=== PATIENT | female | born 1965 | race African-American/Black ===

== ENCOUNTER 2019-08-03 09:33 | Inpatient (IN) | payer SELFPAY ==
[2019-08-03] VITALS (10 sets, daily range): BP systolic 115–219; BP diastolic 68–130
[~2019-08-03] VITALS: Ht 157.5 cm; Wt 85.3 kg
[~2019-08-03 09:33] MED LIST: QUIL
[2019-08-03] MEDS ORDERED: MORPHINE SULFATE 4 MG/ML CPJ (NOT FOR IM USE) IV STA (12:21)
[2019-08-03] MEDS ORDERED: SODIUM CHLORIDE 0.9% 1,000 ML IV ONE ×2 (12:21→18:15)
[2019-08-03] MEDS ORDERED: ONDANSETRON HCL 4MG/2ML INJ IV STA (12:21)
[2019-08-03 13:31] LABS: BASOPHILS % 1.1 % (0.0-2.0); HEMATOCRIT. 32.5 % (36.0-48.0); HEMOGLOBIN. 10.1 g/dL (12.0-16.0); LYMPHOCYTES % 18.4 % (20.0-50.0); MEAN CORPUSCULAR HEMOGLOBIN 20.8 pg (28.0-32.0); MEAN CORPUSCULAR VOLUME 67.1 fL (81.0-99.0); MEAN PLATELET VOLUME 9.2 fl (7.4-10.4); MONOCYTES % 6.2 % (2.0-8.0); NEUTROPHILS % 73.3 % (40.0-76.0); PLATELET 342 x1000/uL (130-400); RED BLOOD CELL COUNT 4.84 mill/uL (4.2-5.4); RED CELL DISTRIBUTION WIDTH 22.4 % (11.6-14.6)
[2019-08-03 13:38] LABS: PROTHROMBIN TIME 9.8 sec (9.6-11.0)
[2019-08-03 13:39] LABS: CHLORIDE 109 mEq/L (98-107)
[2019-08-03 14:09] LABS: PLATELET ESTIMATE NORMAL
[2019-08-03] MEDS ORDERED: IOHEXOL-300 100 ML BOTTLE ONE (14:18)
[2019-08-03] MEDS ORDERED: METRONIDAZOLE 500 MG PREMIX 100 ML IV ONE (14:45)
[2019-08-03] MEDS ORDERED: CEFTRIAXONE 1 G PREMIX 50 ML IV ONE (14:45)
[2019-08-03 15:22] LABS: CLARITY URINE CLEAR (CLEAR); COLOR URINE YELLOW (YELLOW); KETONES URINE NEGATIVE (NEGATIVE); LEUKOCYTE ESTERASE URINE NEGATIVE (NEGATIVE); NITRITE URINE NEGATIVE (NEGATIVE); OCCULT BLOOD URINE TRACE (NEGATIVE); PROTEIN URINE NEGATIVE (NEGATIVE); SPECIFIC GRAVITY URINE 1.005 (1.005-1.030); UROBILINOGEN URINE 0.2 E.U./dL (0.2-1.0)
[2019-08-03] MEDS ORDERED: SKIN ADHESIVE 0.7 GM EA TOP ONE (15:37)
[2019-08-03] MEDS ORDERED: BUPIVACAINE HCL 0.5% (5MG/ML) 50ML ONE (15:37)
[2019-08-03] MEDS ORDERED: FENTANYL CITRATE/PF 50MCG/ML 2ML VIAL IV PRN (15:45)
[2019-08-03] MEDS ORDERED: HYDROMORPHONE HCL/PF 2MG/ML CPJ IV PRN ×2 (15:45→18:00)
[2019-08-03] MEDS ORDERED: ONDANSETRON HCL 4MG/2ML INJ IV PRN ×4 (15:45→19:16)
[2019-08-03] MEDS ORDERED: PROPOFOL 200MG/20ML VIAL IV ONE ×2 (15:55→16:49)
[2019-08-03] MEDS ORDERED: SUCCINYLCHOLINE CHLORIDE 200MG/10ML IV ONE (15:55)
[2019-08-03] MEDS ORDERED: ROCURONIUM BROMIDE 10MG/ML VIAL 5ML IV ONE ×2 (15:55→17:17)
[2019-08-03] MEDS ORDERED: MIDAZOLAM HCL 2 MG/2 ML VIAL ONE ×2 (15:55→18:30)
[2019-08-03] MEDS ORDERED: LIDOCAINE HCL/PF 1% 10 MG/ML 5ML VIAL ONE (15:55)
[2019-08-03] MEDS ORDERED: DEXT 5%/0.45% NACL KCL 10MEQ/L 1,000 ML IV SCH (16:51)
[2019-08-03] MEDS ORDERED: DEXAMETHASONE 4MG/ML 1ML VIAL ONE (16:57)
[2019-08-03] MEDS ORDERED: HYDROCODONE/ACETAMINOPHEN 5/325MG TABLET PO PRN ×2 (17:00→19:16)
[2019-08-03] MEDS ORDERED: IPRATROPIUM/ALBUTEROL 0.5-3(2.5)MG/3ML NEB NEB PRN (17:00)
[2019-08-03] MEDS ORDERED: PIPERACILLIN/TAZ 3.375G PREMIX 50 ML IV SCH (17:00)
[2019-08-03] MEDS ORDERED: MORPHINE SULFATE 2 MG/ML CPJ (NOT FOR IM USE) IV PRN ×3 (17:00→19:16)
[2019-08-03] MEDS ORDERED: ALBUTEROL 90MCG/PUFF 17GM INHALER INH ONE (17:05)
[2019-08-03] MEDS ORDERED: MEPERIDINE HCL/PF 25MG/ML CPJ IV PRN ×2 (18:00)
[2019-08-03] MEDS: MIDAZOLAM HCL 5 MG/5 ML VIAL IV PRN ×2 (19:04→19:44)
[2019-08-03] MEDS ORDERED: MORPHINE SULFATE 4 MG/ML CPJ (NOT FOR IM USE) IV PRN (19:16)
[2019-08-03] MEDS ORDERED: MAGNESIUM/ALUMINUM HYDROXIDE/SIMETHICONE 30ML UDC PO PRN (19:18)
[2019-08-03] MEDS ORDERED: ACETAMINOPHEN 325MG TABLET PO PRN (19:18)
[2019-08-03] MEDS ORDERED: CLONIDINE 0.1MG TABLET PO PRN (19:18)
[2019-08-03] MEDS ORDERED: DIPHENHYDRAMINE 50MG/ML VIAL IV PRN (19:19)
[2019-08-03] MEDS ORDERED: NA PHOS,M-B/NA PHOS,DI-BA ENEMA 118ML PR PRN (19:19)
[2019-08-03] MEDS ORDERED: GUAIFENESIN 200MG/10ML SUGAR FREE UDC PO PRN (19:19)
[2019-08-03] MEDS ORDERED: DOCUSATE SODIUM 100MG CAPSULE PO PRN (19:19)
[2019-08-03] MEDS ORDERED: LORAZEPAM 2MG/ML CPJ IV PRN (19:20)
[2019-08-03 20:33] LABS: BG CARBOXYHEMOGLOBIN 0.4 % (0.5-1.5); BG DEOXYHEMOGLOBIN 0.6 % (0.0-5.0); BG FRACTION INSPIRED OXYGEN 100; BG HCO3 ACT 23.3 mmol/L (22.0-26.0); BG METHEMOGLOBIN 0.4 % (0.0-1.5); BG OXYGEN SATURATION 99.4 % (92.0-98.5); BG OXYHEMOGLOBIN 98.6 % (94.0-97.0); BG PCO2 47.5 mmHg (35.0-45.0); BG PH 7.309 (7.350-7.450); BG PO2 234.2 mmHg (75.0-100.0); BG SAMPLE SITE RIGHT RADIAL; BG TIDAL VOLUME(mL) 500 mL; BG TOTAL HEMOGLOBIN 10.9 g/dL (12.0-18.0); BG VENT MODE VENT - A/C; BG VENT RATE 14 set
[2019-08-03] MEDS: PROPOFOL 10MG/ML 100ML 100 ML IV PRN (21:29)
[2019-08-03] MEDS: SODIUM CHLORIDE 0.9% INJ 3ML FLUSH IVF SCH (22:14)
[2019-08-03] MEDS: PIPERACILLIN/TAZOBACTAM 3.375 G in DEXT 5% WATER 100 ML IV SCH (22:22)
[2019-08-03] MEDS: DEXT 5%/0.45% NACL KCL 20MEQ/L 1,000 ML IV SCH (22:22)
[2019-08-03 23:24] LABS: CHLORIDE 110 mEq/L (98-107)
[2019-08-04] VITALS (43 sets, daily range): BP systolic 95–156; BP diastolic 54–147
[2019-08-04] MEDS: PROPOFOL 10MG/ML 100ML 100 ML IV PRN ×6 (01:34→23:38)
[2019-08-04] MEDS: SODIUM CHLORIDE 0.9% INJ 3ML FLUSH IVF SCH ×3 (05:48→21:16)
[2019-08-04] MEDS: PIPERACILLIN/TAZOBACTAM 3.375 G in DEXT 5% WATER 100 ML IV SCH ×3 (05:50→21:16)
[2019-08-04 06:47] LABS: HEMATOCRIT. 32.6 % (36.0-48.0); HEMOGLOBIN. 9.6 g/dL (12.0-16.0); LYMPHOCYTES % 8.2 % (20.0-50.0); MEAN CORPUSCULAR HEMOGLOBIN 20.1 pg (28.0-32.0); MEAN CORPUSCULAR VOLUME 68.3 fL (81.0-99.0); MEAN PLATELET VOLUME 8.9 fl (7.4-10.4); MONOCYTES % 2.5 % (2.0-8.0); NEUTROPHILS % 89.3 % (40.0-76.0); PLATELET 355 x1000/uL (130-400); RED BLOOD CELL COUNT 4.78 mill/uL (4.2-5.4); RED CELL DISTRIBUTION WIDTH 22.4 % (11.6-14.6)
[2019-08-04 07:21] LABS: CHLORIDE 109 mEq/L (98-107)
[2019-08-04 07:30] LABS: LDL CHOLESTEROL 51 mg/dL (5-100)
[2019-08-04 07:31] LABS: HDL CHOLESTEROL 47 mg/dL (40-59)
[2019-08-04 08:02] LABS: BG BASE EXCESS -3.4 mmol/L (-2.0-2.0); BG CARBOXYHEMOGLOBIN 0.2 % (0.5-1.5); BG DEOXYHEMOGLOBIN 2.8 % (0.0-5.0); BG FRACTION INSPIRED OXYGEN 61; BG HCO3 ACT 21.4 mmol/L (22.0-26.0); BG METHEMOGLOBIN 0.2 % (0.0-1.5); BG OXYGEN SATURATION 97.2 % (92.0-98.5); BG OXYHEMOGLOBIN 96.8 % (94.0-97.0); BG PCO2 37.4 mmHg (35.0-45.0); BG PH 7.375 (7.350-7.450); BG PO2 95.5 mmHg (75.0-100.0); BG SAMPLE SITE RIGHT RADIAL; BG TIDAL VOLUME(mL) 500 mL; BG TOTAL HEMOGLOBIN 10.5 g/dL (12.0-18.0); BG VENT MODE VENT - A/C; BG VENT RATE 16 set
[2019-08-04] MEDS: ENOXAPARIN 40MG/0.4ML SYR SUBCUT SCH (08:51)
[2019-08-04] MEDS: DEXT 5%/0.45% NACL KCL 20MEQ/L 1,000 ML IV SCH ×2 (08:52→19:08)
[2019-08-04] MEDS ORDERED: IPRATROPIUM/ALBUTEROL 0.5-3(2.5)MG/3ML NEB HHN SCH (09:15)
[2019-08-04] MEDS: IPRATROPIUM/ALBUTEROL 0.5-3(2.5)MG/3ML NEB HHN SCH ×3 (11:36→20:25)
[2019-08-04] MEDS: ACETYLCYSTEINE 100MG/ML 10% VIAL 4ML INH SCH (15:39)
[2019-08-05] VITALS (33 sets, daily range): BP systolic 102–173; BP diastolic 57–126
[2019-08-05] MEDS: ACETYLCYSTEINE 100MG/ML 10% VIAL 4ML INH SCH ×2 (00:29→16:27)
[2019-08-05] MEDS: IPRATROPIUM/ALBUTEROL 0.5-3(2.5)MG/3ML NEB HHN SCH ×6 (00:29→21:40)
[2019-08-05] MEDS: PROPOFOL 10MG/ML 100ML 100 ML IV PRN ×2 (04:49→07:09)
[2019-08-05] MEDS: PIPERACILLIN/TAZOBACTAM 3.375 G in DEXT 5% WATER 100 ML IV SCH ×3 (04:50→22:03)
[2019-08-05] MEDS: SODIUM CHLORIDE 0.9% INJ 3ML FLUSH IVF SCH ×3 (06:10→21:07)
[2019-08-05] MEDS: DEXT 5%/0.45% NACL KCL 20MEQ/L 1,000 ML IV SCH ×2 (06:28→17:55)
[2019-08-05 06:35] LABS: BASOPHILS % 0.4 % (0.0-2.0); EOSINOPHILS % 0.4 % (0.0-5.0); HEMOGLOBIN. 9.3 g/dL (12.0-16.0); LYMPHOCYTES % 14.1 % (20.0-50.0); MEAN CORPUSCULAR HEMOGLOBIN 20.3 pg (28.0-32.0); MEAN CORPUSCULAR VOLUME 67.7 fL (81.0-99.0); MONOCYTES % 5.9 % (2.0-8.0); NEUTROPHILS % 79.2 % (40.0-76.0); RED BLOOD CELL COUNT 4.57 mill/uL (4.2-5.4); RED CELL DISTRIBUTION WIDTH 22.6 % (11.6-14.6)
[2019-08-05 07:23] LABS: CHLORIDE 110 mEq/L (98-107)
[2019-08-05 07:37] LABS: PLATELET 251 x1000/uL (130-400)
[2019-08-05 08:40] LABS: BG BASE EXCESS 3.9 mmol/L (-2.0-2.0); BG CARBOXYHEMOGLOBIN 0.3 % (0.5-1.5); BG DEOXYHEMOGLOBIN 0.8 % (0.0-5.0); BG FRACTION INSPIRED OXYGEN 60; BG HCO3 ACT 28.8 mmol/L (22.0-26.0); BG METHEMOGLOBIN 0.3 % (0.0-1.5); BG OXYGEN SATURATION 99.2 % (92.0-98.5); BG OXYHEMOGLOBIN 98.6 % (94.0-97.0); BG PH 7.424 (7.350-7.450); BG PO2 210.3 mmHg (75.0-100.0); BG SAMPLE SITE RIGHT RADIAL; BG TIDAL VOLUME(mL) 500 mL; BG TOTAL HEMOGLOBIN 9.6 g/dL (12.0-18.0); BG VENT MODE VENT - A/C; BG VENT RATE 14 set
[2019-08-05] MEDS: ENOXAPARIN 40MG/0.4ML SYR SUBCUT SCH (09:53)
[2019-08-05 10:01] LABS: BG BASE EXCESS 3.2 mmol/L (-2.0-2.0); BG CARBOXYHEMOGLOBIN 0.3 % (0.5-1.5); BG DEOXYHEMOGLOBIN 1.9 % (0.0-5.0); BG FRACTION INSPIRED OXYGEN 40; BG HCO3 ACT 27.4 mmol/L (22.0-26.0); BG METHEMOGLOBIN 0.2 % (0.0-1.5); BG OXYGEN SATURATION 98.1 % (92.0-98.5); BG OXYHEMOGLOBIN 97.6 % (94.0-97.0); BG PH 7.453 (7.350-7.450); BG PO2 112.3 mmHg (75.0-100.0); BG PRESSURE SUPPORT 8; BG SAMPLE SITE RIGHT RADIAL; BG TOTAL HEMOGLOBIN 9.8 g/dL (12.0-18.0); BG VENT MODE VENT - CPAP
[2019-08-05 17:04] LABS: T4 FREE 1.16 ng/dL (0.76-1.46)
[2019-08-05 17:06] LABS: CREATINE KINASE 311 IU/L (26-192)
[2019-08-05 17:08] LABS: CREATINE KINASE MB FRACTION < 1.0 ng/mL (0.5-3.6)
[2019-08-05] MEDS: HYDROCODONE/ACETAMINOPHEN 5/325MG TABLET PO PRN (22:39)
[2019-08-05 23:48] LABS: CREATINE KINASE 254 IU/L (26-192); CREATINE KINASE MB FRACTION < 1.0 ng/mL (0.5-3.6)
[2019-08-06] VITALS (14 sets, daily range): BP systolic 137–164; BP diastolic 63–94
[2019-08-06] MEDS: IPRATROPIUM/ALBUTEROL 0.5-3(2.5)MG/3ML NEB HHN SCH ×6 (00:13→22:03)
[2019-08-06] MEDS: ACETYLCYSTEINE 100MG/ML 10% VIAL 4ML INH SCH ×3 (00:13→16:54)
[2019-08-06] MEDS: HYDROCODONE/ACETAMINOPHEN 5/325MG TABLET PO PRN ×2 (03:58→19:39)
[2019-08-06] MEDS: SODIUM CHLORIDE 0.9% INJ 3ML FLUSH IVF SCH ×2 (06:03→23:32)
[2019-08-06] MEDS: DEXT 5%/0.45% NACL KCL 20MEQ/L 1,000 ML IV SCH ×3 (06:03→22:59)
[2019-08-06] MEDS: PIPERACILLIN/TAZOBACTAM 3.375 G in DEXT 5% WATER 100 ML IV SCH ×3 (06:03→22:33)
[2019-08-06 06:15] LABS: BASOPHILS % 0.4 % (0.0-2.0); EOSINOPHILS % 0.4 % (0.0-5.0); HEMATOCRIT. 28.7 % (36.0-48.0); HEMOGLOBIN. 8.5 g/dL (12.0-16.0); LYMPHOCYTES % 24.1 % (20.0-50.0); MEAN CORPUSCULAR HEMOGLOBIN 20.1 pg (28.0-32.0); MEAN CORPUSCULAR VOLUME 67.5 fL (81.0-99.0); MEAN PLATELET VOLUME 8.8 fl (7.4-10.4); MONOCYTES % 6.9 % (2.0-8.0); NEUTROPHILS % 68.2 % (40.0-76.0); PLATELET 337 x1000/uL (130-400); RED BLOOD CELL COUNT 4.26 mill/uL (4.2-5.4); RED CELL DISTRIBUTION WIDTH 21.9 % (11.6-14.6)
[2019-08-06 06:25] LABS: CHLORIDE 111 mEq/L (98-107)
[2019-08-06 06:45] LABS: CREATINE KINASE 194 IU/L (26-192)
[2019-08-06 06:47] LABS: CREATINE KINASE MB FRACTION < 1.0 ng/mL (0.5-3.6)
[2019-08-06] MEDS: ENOXAPARIN 40MG/0.4ML SYR SUBCUT SCH (10:23)
[2019-08-07] VITALS: BP 135/67
[2019-08-07] MEDS: ACETYLCYSTEINE 100MG/ML 10% VIAL 4ML INH SCH ×3 (01:43→17:00)
[2019-08-07] MEDS: IPRATROPIUM/ALBUTEROL 0.5-3(2.5)MG/3ML NEB HHN SCH ×5 (01:43→17:00)
[2019-08-07 04:00] VITALS: BP 144/54
[2019-08-07] MEDS: SODIUM CHLORIDE 0.9% INJ 3ML FLUSH IVF SCH ×2 (05:36→13:29)
[2019-08-07] MEDS: PIPERACILLIN/TAZOBACTAM 3.375 G in DEXT 5% WATER 100 ML IV SCH ×2 (05:36→13:29)
[2019-08-07] MEDS: DEXT 5%/0.45% NACL KCL 20MEQ/L 1,000 ML IV SCH (05:36)
[2019-08-07 06:43] LABS: CHLORIDE 108 mEq/L (98-107)
[2019-08-07 08:08] LABS: HEMATOCRIT. 29.5 % (36.0-48.0); MEAN CORPUSCULAR HEMOGLOBIN 20.3 pg (28.0-32.0); MEAN CORPUSCULAR VOLUME 66.8 fL (81.0-99.0); MEAN PLATELET VOLUME 9.2 fl (7.4-10.4); PLATELET 343 x1000/uL (130-400); RED BLOOD CELL COUNT 4.42 mill/uL (4.2-5.4); RED CELL DISTRIBUTION WIDTH 21.9 % (11.6-14.6)
[2019-08-07] MEDS ORDERED: POTASSIUM CHLORIDE 20MEQ TABLET SR PO SCH (08:30)
[2019-08-07] MEDS: ENOXAPARIN 40MG/0.4ML SYR SUBCUT SCH (08:44)
[2019-08-07 10:52] LABS: PLATELET ESTIMATE NORMAL
[2019-08-07 17:20] VITALS: BP 141/59
== END 2019-08-07 18:00 | disposition home or self-care (01) | DRG 234 ==
LOC: ER 09:33 → OR 15:37 → ORIP 15:38 → EDBEDREQ 15:42 → ENRESERV 17:45 → CVICU 20:55 → 8WST 08-06 14:13
PROVIDERS: ADMIT Internal Medicine; ATTEND Internal Medicine
PROC: 0DTJ4ZZ Resection of Appendix, Percutaneous Endoscopic Approach (ICD-10-PCS; principal; 2019-08-03)
PROC: 5A1945Z Respiratory Ventilation, 24-96 Consecutive Hours (ICD-10-PCS; 2019-08-03)
PROC: 0BH18EZ Insertion of Endotracheal Airway into Trachea, Via Natural or Artificial Opening Endoscopic (ICD-10-PCS; 2019-08-03)
DX: K35.80 Unspecified acute appendicitis (principal); J96.00 Acute respiratory failure, unspecified whether with hypoxia or hypercapnia; A41.9 Sepsis, unspecified organism; E44.0 Moderate protein-calorie malnutrition; J84.9 Interstitial pulmonary disease, unspecified; E87.2 Acidosis; E86.0 Dehydration; E87.6 Hypokalemia; J98.11 Atelectasis; D64.9 Anemia, unspecified; Z78.1 Physical restraint status; Z98.891 History of uterine scar from previous surgery; Z68.34 Body mass index [BMI] 34.0-34.9, adult; F17.200 Nicotine dependence, unspecified, uncomplicated; T81.44XA Sepsis following a procedure, initial encounter; Y83.6 Removal of other organ (partial) (total) as the cause of abnormal reaction of the patient, or of later complication, without mention of misadventure at the time of the procedure; Y92.234 Operating room of hospital as the place of occurrence of the external cause
CPT/HCPCS: 36415; 36600; 71045; 74177; 80048; 80053; 80061; 81003; 82375; 82550; 82553; 82805; 83036; 83880; 84134; 84439; 84443; 84478; 84484; 85025; 85379; 87070; 88304; 93005; 93306; 94002; 94003; 94640; 97162; 99285; C1893; J0330; J0696; J1100; J1650; J2060; J2250; J2270; J2405; J2543; J2704; J3010; J3490; J7030; J7060; J7608; Q9967

== ENCOUNTER 2023-04-28 07:50 | Emergency (ER) | payer MEDICAID ==
[~2023-04-28] VITALS: Ht 157.5 cm; Wt 78.0 kg
[2023-04-28 08:01] VITALS: TEMP 97.9; O2SAT 99
[2023-04-28 09:26] LABS: BASOPHILS % 0.6 % (0.0-2.0); EOSINOPHILS % 0.9 % (0.0-5.0); HEMATOCRIT. 48.7 % (36.0-48.0); HEMOGLOBIN. 15.6 g/dL (12.0-16.0); LYMPHOCYTES % 24.7 % (20.0-50.0); MEAN CORPUSCULAR HEMOGLOBIN 28.1 pg (28.0-32.0); MEAN CORPUSCULAR HGB CONC 32.1 g/dL (31.0-37.0); MEAN CORPUSCULAR VOLUME 87.7 fL (81.0-99.0); MEAN PLATELET VOLUME 9.1 fl (7.4-10.4); MONOCYTES % 5.7 % (2.0-8.0); NEUTROPHILS % 68.1 % (40.0-76.0); PLATELET 277 x1000/uL (130-400); RED BLOOD CELL COUNT 5.55 mill/uL (4.2-5.4); RED CELL DISTRIBUTION WIDTH 15.7 % (11.6-14.6); WHITE BLOOD COUNT 11.1 x1000/uL (4.5-11.0)
[2023-04-28 09:41] LABS: CHLORIDE 109 mEq/L (98-107); INDEX HEMOLYSI 1 (1-3); INDEX ICTERIC 1 (1-4); INDEX LIPEMIC 1 (1-3); POTASSIUM 3.9 mEq/L (3.5-5.1); SODIUM 138 mEq/L (136-145)
[2023-04-28 09:48] LABS: ALANINE AMINOTRANSFERASE 20 IU/L (13-61); ALBUMIN 3.9 g/dL (3.4-5.0); ASPARTATE AMINOTRANSFERASE 7 IU/L (15-37); BILIRUBIN TOTAL 0.5 mg/dL (0.1-1.0); CALCIUM 9.2 mg/dL (8.5-10.1); CARBON DIOXIDE 22 mEq/L (21-32); CREATININE 0.7 mg/dL (0.6-1.3); GLUCOSE 184 mg/dL (70-105); UREA NITROGEN BLOOD 7 mg/dL (7-21)
[2023-04-28] MEDS ORDERED: HYDR-4001 MT (10:19)
[2023-04-28] MEDS ORDERED: HYDROCODONE/ACETAMINOPHEN 5/325MG TABLET PO ONE (10:45)
[2023-04-28 11:39] VITALS: BP 196/112; PULSE 83; RESP 16
== END 2023-04-28 11:43 | disposition home or self-care (01) ==
LOC: ER 08:04
DX: R22.1 Localized swelling, mass and lump, neck (principal); I10 Essential (primary) hypertension; R73.9 Hyperglycemia, unspecified; F12.10 Cannabis abuse, uncomplicated; Z98.890 Other specified postprocedural states
CPT/HCPCS: 36415; 80053; 85025; 99283